=== PATIENT | female | born 1965 | race Caucasian/White ===

== ENCOUNTER 2016-11-27 14:21 | Outpatient (CLI) | payer MEDICAID ==
--- NOTE | 2016-11-29 10:30 | Mammography Report ---
DIGITAL SCREENING MAMMOGRAM: 11/27/2016 COMPARISON: 10/20/2012. TECHNIQUE: Bilateral digital CC and MLO projections with additional bilateral Марина projections. FINDINGS: The breast tissue is extremely dense. Bilateral breast implants are present. There is no d ominant mass, architectural distortion, skin thickening, suspicious microcalcifications, or significa nt interval change. IMPRESSION: NEGATIVE. BIRADS CATEGORY 1-NEGATIVE. RECOMMENDATION: SUGGEST RETURN TO ROUTINE SCREENING IN TWELVE MONTHS. STANDARD QUALIFYING STATEMENTS 1. This examination was reviewed with the aid of Computer-Aided Detection (CAD). 2. A negative or benign imaging report should not delay biopsy if clinically suspicious findings are present. Consider surgical consultation if warranted. More than 5% of cancers are not identified by i maging. 3. Dense breasts may obscure an underlying neoplasm. JOB #: [id number] EXT JOB #:[id number]
== END 2016-11-27 14:22 | disposition home or self-care (01) ==
LOC: DI.N 14:21
PROVIDERS: ATTEND Physician Assistant
DX: Z12.31 Encounter for screening mammogram for malignant neoplasm of breast (principal)
CPT/HCPCS: 77067

== ENCOUNTER 2017-09-17 14:40 | Outpatient (CLI) | payer BC ==
--- NOTE | 2017-09-17 15:43 | XRAY Report ---
Procedure Date: 09/17/2017 Accession Number: [id number] / [id number] Procedure: XRN - Elbow 2 View RT CPT Code: FULL RESULT: EXAM: Elbow 2 View RT DATE: 09/17/2017 2:53 PM CLINICAL HISTORY: RT ELBOW PAIN COMPARISON: None. TECHNIQUE: 2 views. FINDINGS: Bones: Normal. No fractures or bone lesions. Joints: Normal. No effusion. No subluxation. Soft Tissues: Normal. No soft tissue swelling. IMPRESSION: Normal elbow radiography. RADIA
== END 2017-09-17 14:41 | disposition home or self-care (01) ==
LOC: DI.N 14:40
PROVIDERS: ATTEND Physician Assistant Medical
DX: M25.521 Pain in right elbow (principal)

== ENCOUNTER 2017-12-01 13:31 | Outpatient (CLI) | payer BC ==
--- NOTE | 2017-12-02 13:15 | Mammography Report ---
Reason: SCREENING MAMMO Procedure Date: 12/01/2017 Accession Number: [id number] / [id number] Procedure: MGN - Screening Mammo Dig w/Implants CPT Code: FULL RESULT: EXAM: Screening Mammo Dig w/Implants DATE: 12/01/2017 2:21 PM CLINICAL HISTORY: 52-year-old female with history of early menses and family history of breast cancer in the mother at age 52, the sister at age 38, an aunt at age 58. TECHNIQUE: Bilateral CC and MLO views with standard technique and implant displaced technique were obtained. COMPARISON: 11/27/2016. FINDINGS: The breasts demonstrate extremely dense parenchyma bilaterally, limiting the sensitivity of mammography. Bilateral breast implants are unchanged in appearance. No suspicious masses, clustered microcalcifications, or regions of architectural distortion are identified. IMPRESSION: Negative examination RECOMMENDATION: Routine annual screening unless otherwise clinically indicated. BIRADS CATEGORY 1: Negative STANDARD QUALIFYING STATEMENTS: 1. This examination was not reviewed with the aid of Computer-Aided Detection (CAD). 2. A negative or benign imaging report should not delay biopsy if clinically suspicious findings are present. Consider surgical consultation if warrented. More than 5% of cancers are not identified by imaging. 3. Dense breasts may obscure an underlying neoplasm.
== END 2017-12-01 13:32 | disposition home or self-care (01) ==
LOC: DI.N 13:31
DX: Z12.31 Encounter for screening mammogram for malignant neoplasm of breast (principal); Z80.3 Family history of malignant neoplasm of breast; Z98.82 Breast implant status
CPT/HCPCS: 77067

== ENCOUNTER 2018-07-13 11:07 | Outpatient (CLI) | payer OTHER, MEDICAID ==
[2018-07-13 19:56] LABS: BASOPHILS % (AUTO) 0.5 %; EOSINOPHILS # (AUTO) 0.1 10^3/uL (0.0-0.7); EOSINOPHILS % (AUTO) 1.8 %; HGB - HEMOGLOBIN 13.5 g/dL (12.0-16.0); LYMPHOCYTES # (AUTO) 2.1 10^3/uL (1.5-3.5); LYMPHOCYTES % (AUTO) 35.6 %; MEAN CORPUSCULAR HEMOGLOBIN 29.4 pg (27.0-31.0); MEAN CORPUSCULAR HGB CONC 33.1 g/dL (32.0-36.0); MEAN CORPUSCULAR VOLUME 88.8 fL (81.0-99.0); MEAN PLATELET VOLUME 8.2 fL (7.9-10.8); MONOCYTES # (AUTO) 0.5 10^3/uL (0.0-1.0); MONOCYTES % (AUTO) 8.2 %; NEUTROPHILS # (AUTO) 3.1 10^3/uL (1.5-6.6); NEUTROPHILS % (AUTO) 53.9 %; PLT - PLATELET COUNT 272 10^3/uL (130-450); RED CELL DISTRIBUTION WIDTH 12.3 % (12.0-15.0); WHITE BLOOD COUNT 5.8 x10^3/uL (4.8-10.8)
[2018-07-13 20:27] LABS: BUN - BLOOD UREA NITROGEN 13 mg/dL (6-20); CALCIUM 8.8 mg/dL (8.5-10.3); CARBON DIOXIDE - CO2 30 mmol/L (21-32); CHLORIDE 103 mmol/L (101-111); CHOLESTEROL 178 mg/dL; CREATININE 0.6 mg/dL (0.4-1.0); GFR - MDRD 105 (>89); GLUCOSE 85 mg/dL (70-100); HDL CHOLESTEROL 60 mg/dL; SODIUM 140 mmol/L (135-145)
[2018-07-13 21:01] LABS: LDL CHOLESTEROL,DIRECT 114 mg/dL; LDLD/HDL RATIO 1.9 (<4.4)
== END 2018-07-13 23:59 | disposition home or self-care (01) ==
LOC: LAB.N 11:07
PROVIDERS: ATTEND Physician Assistant Medical
DX: Z00.00 Encounter for general adult medical examination without abnormal findings (principal)
CPT/HCPCS: 36415; 80048; 80061; 83721; 84443; 85025

== ENCOUNTER 2018-07-15 08:00 | Outpatient (CLI) | payer OTHER, MEDICAID ==
[2018-07-15 13:26] LABS: THYROID STIMULATING HORMONE < 0.08 uIU/mL (0.34-5.60)
[2018-07-15 13:27] LABS: FREE T4 (FREE THYROXINE) 1.15 ng/dL (0.58-1.64)
== END 2018-07-15 23:59 | disposition home or self-care (01) ==
LOC: LAB.N 08:00
PROVIDERS: ATTEND Physician Assistant Medical
DX: E23.0 Hypopituitarism (principal)
CPT/HCPCS: 36415; 81599; 84439; 84443; 86800

== ENCOUNTER 2018-10-13 08:00 | Outpatient (CLI) | payer MEDICAID, OTHER ==
[2018-10-13 13:08] LABS: THYROID STIMULATING HORMONE 13.26 uIU/mL (0.34-5.60)
[2018-10-13 13:10] LABS: FREE T4 (FREE THYROXINE) 0.67 ng/dL (0.58-1.64)
== END 2018-10-13 23:59 | disposition home or self-care (01) ==
LOC: LAB.N 08:00
PROVIDERS: ATTEND Physician Assistant Medical
DX: E23.0 Hypopituitarism (principal)
CPT/HCPCS: 36415; 84439; 84443; 84481

== ENCOUNTER 2018-11-04 08:00 | Outpatient (CLI) | payer OTHER | END 2018-11-04 23:59 | disposition home or self-care (01) | LOC: LAB.N 08:00 | PROVIDERS: ATTEND Physician Assistant Medical | DX: E03.9 Hypothyroidism, unspecified (principal) | CPT/HCPCS: 36415; 86800 ==

== ENCOUNTER 2018-12-01 14:24 | Outpatient (CLI) | payer OTHER ==
--- NOTE | 2018-12-02 08:40 | Mammography Report ---
Reason: SCREENING MAMMO Procedure Date: 12/01/2018 Accession Number: [id number] / [id number] Procedure: MGN - Screening Mammo Dig w/Implants CPT Code: FULL RESULT: EXAM: Screening Mammo Dig w/Implants DATE: 12/01/2018 2:53 PM CLINICAL HISTORY: Screening encounter. History of early menses. Family history of breast cancer in the mother at the age of 55. Personal history of bilateral saline breast implants. TECHNIQUE: (B) - Bilateral CC and MLO views were obtained. Images were obtained in standard and implant displaced fashion. COMPARISON: 12/01/2017 through 11/27/2016. PARENCHYMAL PATTERN: (D) - The breast(s) demonstrate(s) heterogeneously dense fibroglandular parenchyma. FINDINGS: Note is made of bilateral intact-appearing retromammary implants. There are no suspicious masses, calcifications, or areas of distortion. IMPRESSION: Benign findings. BI-RADS category 2. RECOMMENDATION: (ANNUAL) - Recommend routine annual screening mammography. BI-RADS CATEGORY: (2) - Benign Findings. STANDARD QUALIFYING STATEMENTS: 1. This examination was not reviewed with the aid of Computer-Aided Detection (CAD). 2. A negative or benign imaging report should not preclude biopsy if clinically suspicious findings are present. 3. Dense breasts may obscure an underlying neoplasm. 4. This examination was reviewed without the aid of 3D breast imaging (tomosynthesis).
== END 2018-12-01 14:25 | disposition home or self-care (01) ==
LOC: DI.N 14:24
DX: Z12.31 Encounter for screening mammogram for malignant neoplasm of breast (principal); Z80.3 Family history of malignant neoplasm of breast; Z98.82 Breast implant status
CPT/HCPCS: 77067

== ENCOUNTER 2018-12-24 07:41 | Outpatient (CLI) | payer OTHER ==
[2018-12-24 13:21] LABS: THYROID STIMULATING HORMONE 0.33 uIU/mL (0.34-5.60)
[2018-12-24 13:23] LABS: FREE T4 (FREE THYROXINE) 1.47 ng/dL (0.58-1.64)
== END 2018-12-24 23:59 | disposition home or self-care (01) ==
LOC: LAB.N 07:41
PROVIDERS: ATTEND Physician Assistant Medical
DX: E03.9 Hypothyroidism, unspecified (principal); R94.6 Abnormal results of thyroid function studies
CPT/HCPCS: 36415; 84439; 84443

== ENCOUNTER 2019-12-02 08:20 | Outpatient (CLI) | payer OTHER ==
--- NOTE | 2019-12-03 12:03 | Mammography Report ---
BILATERAL DIGITAL SCREENING MAMMOGRAM 3D/2D WITH AUGMENTATION: 12/02/2019 CLINICAL: Family history of breast cancer. Routine screening. Comparison is made to exams dated: 12/01/2017 mammogram, 11/27/2016 mammogram, and 12/01/2018 mammogram - [facility]. The tissue of both breasts is heterogeneously dense. This may lower the sensitivity of mammography. Bilateral breast implants are present. No significant masses, calcifications, or other findings are seen in either breast. There has been no significant interval change. IMPRESSION: NEGATIVE There is no mammographic evidence of malignancy. A 1 year screening mammogram is recommended. This exam was interpreted at Station ID: [id number]. NOTE: For mammograms, a report in lay terms will be sent to the patient. Approximately 15% of breast malignancies will not be visualized mammographically. In the management of a palpable breast mass, a negative mammogram must not discourage biopsy of a clinically suspicious lesion. Electronically Signed By: Dada chilel/colton:12/02/2019 09:08:34 ACR BI-RADS Category 1: Negative 3341F PARENCHYMAL PATTERN: (D) - The breast(s) demonstrate(s) heterogeneously dense fibroglandular cecile frank. BI-RADS CATEGORY: (1) - 1 RECOMMENDATION: (ANNUAL) - Recommend routine annual screening mammography. [id number] 1 year screening LATERALITY: (B)
== END 2019-12-02 08:21 | disposition home or self-care (01) ==
LOC: DI.N 08:20
DX: Z12.31 Encounter for screening mammogram for malignant neoplasm of breast (principal)
CPT/HCPCS: 77063; 77067

== ENCOUNTER 2020-03-28 07:45 | Outpatient (CLI) | payer OTHER ==
[2020-03-28 13:01] LABS: THYROID STIMULATING HORMONE 0.2 uIU/mL (0.34-5.60)
[2020-03-28 13:03] LABS: FREE T3 3.35 pg/mL (2.5-3.9); FREE T4 (FREE THYROXINE) 1.25 ng/dL (0.58-1.64)
== END 2020-03-28 07:46 | disposition home or self-care (01) ==
LOC: LAB.N 07:45
PROVIDERS: ATTEND Nurse Practitioner Family
DX: E03.9 Hypothyroidism, unspecified (principal)
CPT/HCPCS: 36415; 84439; 84443; 84481

== ENCOUNTER 2020-05-23 07:37 | Outpatient (CLI) | payer OTHER ==
[2020-05-23 12:17] LABS: THYROID STIMULATING HORMONE 0.77 uIU/mL (0.34-5.60)
== END 2020-05-23 07:38 | disposition home or self-care (01) ==
LOC: LAB.N 07:37
PROVIDERS: ATTEND Nurse Practitioner Family
DX: R79.89 Other specified abnormal findings of blood chemistry (principal)
CPT/HCPCS: 36415; 84443

== ENCOUNTER 2020-12-05 07:56 | Outpatient (CLI) | payer OTHER ==
[2020-12-05 12:24] LABS: BASOPHILS # (AUTO) 0.1 10^3/uL (0.0-0.1); BASOPHILS % (AUTO) 0.8 %; EOSINOPHILS # (AUTO) 0.2 10^3/uL (0.0-0.7); EOSINOPHILS % (AUTO) 2.5 %; HCT - HEMATOCRIT 44.3 % (37.0-47.0); HGB - HEMOGLOBIN 14.3 g/dL (12.0-16.0); LYMPHOCYTES # (AUTO) 2.1 10^3/uL (1.5-3.5); LYMPHOCYTES % (AUTO) 34.9 %; MEAN CORPUSCULAR HEMOGLOBIN 29.2 pg (27.0-31.0); MEAN CORPUSCULAR HGB CONC 32.3 g/dL (32.0-36.0); MEAN CORPUSCULAR VOLUME 90.4 fL (81.0-99.0); MONOCYTES # (AUTO) 0.5 10^3/uL (0.0-1.0); MONOCYTES % (AUTO) 8.7 %; NEUTROPHILS # (AUTO) 3.2 10^3/uL (1.5-6.6); NEUTROPHILS % (AUTO) 52.9 %; PLT - PLATELET COUNT 291 10^3/uL (130-450); RED CELL DISTRIBUTION WIDTH 12.5 % (12.0-15.0); WHITE BLOOD COUNT 6.1 x10^3/uL (4.8-10.8)
[2020-12-05 12:38] LABS: BILIRUBIN,URINE NEGATIVE (NEGATIVE); GLUCOSE, URINE (UA) NEGATIVE (NEGATIVE); KETONES,URINE (UA) NEGATIVE (NEGATIVE); LEUKOCYTE ESTERASE, URINE LARGE (NEGATIVE); NITRITE,URINE NEGATIVE (NEGATIVE); OCCULT BLOOD,URINE MODERATE (NEGATIVE); PROTEIN,URINE NEGATIVE (NEGATIVE); UROBILINOGEN,URINE 0.2 (NORMAL) E.U./dL (NORMAL)
[2020-12-05 12:42] LABS: ALBUMIN 4.6 g/dL (3.2-5.5); ALBUMIN/GLOBULIN RATIO 1.4 (1.0-2.2); ALKALINE PHOSPHATASE 64 IU/L (42-121); ALT ALANINE AMINOTRANSFERASE 17 IU/L (10-60); AST ASPARTATE AMINOTRANSFERASE 17 IU/L (10-42); BILIRUBIN,TOTAL 1.1 mg/dL (0.2-1.0); BUN - BLOOD UREA NITROGEN 13 mg/dL (6-20); CALCIUM 9.5 mg/dL (8.5-10.3); CARBON DIOXIDE - CO2 28 mmol/L (21-32); CHLORIDE 102 mmol/L (101-111); CHOL/HDL RATIO 2.9 (<4.4); CHOLESTEROL 223 mg/dL; CLARITY,URINE HAZY (CLEAR); CREATININE 0.8 mg/dL (0.4-1.0); GFR - MDRD 75 (>89); GLUCOSE 95 mg/dL (70-100); HDL CHOLESTEROL 78 mg/dL; LDL CHOLESTEROL,CALCULATED 136 mg/dL; LDL/HDL RATIO 1.7 (<4.4); POTASSIUM 3.9 mmol/L (3.5-5.0); SODIUM 141 mmol/L (135-145); TOTAL PROTEIN 7.8 g/dL (6.7-8.2); TRIGLYCERIDES 47 mg/dL; VLDL CHOLESTEROL 9 mg/dL
[2020-12-05 12:50] LABS: CRP - C-REACTIVE PROTEIN < 1.0 mg/dL (0-1.0)
[2020-12-05 12:51] LABS: BACTERIA,URINE Few /HPF (None Seen); EPITHELIAL CELLS,UR MOD Transitional /HPF (<= Few); SQUAMOUS EPITHELIAL CELL,UR MOD Squamous (<= Few)
[2020-12-05 12:52] LABS: THYROID STIMULATING HORMONE 1.25 uIU/mL (0.34-5.60)
[2020-12-05 12:54] LABS: FREE T4 (FREE THYROXINE) 1.36 ng/dL (0.58-1.64)
[2020-12-05 13:15] LABS: RHEUMATOID FACTOR NEGATIVE (Negative)
[2020-12-08 13:32] LABS: ANA PATTERN Nuclear, Speckled; ANA SCREEN POSITIVE (NEGATIVE)
== END 2020-12-05 07:57 | disposition home or self-care (01) ==
LOC: LAB.N 07:56
PROVIDERS: ATTEND Nurse Practitioner
DX: E03.9 Hypothyroidism, unspecified (principal); R53.83 Other fatigue; Z13.220 Encounter for screening for lipoid disorders; M19.049 Primary osteoarthritis, unspecified hand
CPT/HCPCS: 36415; 80053; 80061; 81001; 83721; 84439; 84443; 85025; 85651; 86038; 86140; 86200; 86430; 87086

== ENCOUNTER 2020-12-05 08:05 | Outpatient (CLI) | payer OTHER ==
--- NOTE | 2020-12-05 17:45 | XRAY Report ---
PROCEDURE: Hand 2 View BILAT INDICATIONS: BILATERAL PRIMARY OSTEOARTHRITIS TECHNIQUE: 2 views of the bilateral hand(s) acquired. COMPARISON: None FINDINGS: Bones: No acute fractures or dislocations. Normal bone mineralization. Alignment is anatomic. Joint spaces are maintained. Minimal degenerative changes noted over the interphalangeal and metacarpophala ngeal joints of the left thumb. No suspicious bony lesions. Soft tissues: No suspicious soft tissue calcifications. IMPRESSION: Bilateral hand without acute osseous abnormalities. Minimal degenerative changes noted over the interphalangeal and metacarpophalangeal joints of the lef t thumb. Otherwise, no radiographic evidence for significant degenerative change in the bilateral castillo d. No osseous erosions. Reviewed by: Rafa Okeefe MD on 12/05/2020 5:44 PM PDT Approved by: Rafa Okeefe MD on 12/05/2020 5:44 PM PDT Station ID: [id number]
== END 2020-12-05 08:06 | disposition home or self-care (01) ==
LOC: DI.N 08:05
PROVIDERS: ATTEND Nurse Practitioner
DX: M19.042 Primary osteoarthritis, left hand (principal); M19.041 Primary osteoarthritis, right hand; M18.12 Unilateral primary osteoarthritis of first carpometacarpal joint, left hand; E03.9 Hypothyroidism, unspecified; R53.83 Other fatigue; Z13.220 Encounter for screening for lipoid disorders
CPT/HCPCS: 36415; 80053; 80061; 81001; 83721; 84439; 84443; 85025; 85651; 86038; 86140; 86200; 86430; 87086

== ENCOUNTER 2020-12-05 08:29 | Outpatient (CLI) | payer OTHER ==
--- NOTE | 2020-12-06 09:35 | Mammography Report ---
BILATERAL DIGITAL SCREENING MAMMOGRAM 3D/2D WITH AUGMENTATION: 12/05/2020 CLINICAL: Family history of breast cancer. Routine screening. Comparison is made to exams dated: 12/02/2019 mammogram, 12/01/2018 mammogram, 12/01/2017 mammogram, mammogram, 11/27/2016 mammogram - [facility], and 10/20/2012 mammogram - [facility]. The tissue of both breasts is heterogeneously dense. This may lower the sensitivity of m ammography. Bilateral breast implants are stable. No significant masses, calcifications, or other findings are seen in either breast. There has been no significant interval change. IMPRESSION: NEGATIVE There is no mammographic evidence of malignancy. A 1 year screening mammogram is recommended. This exam was interpreted at Station ID: [id number]. NOTE: For mammograms, a report in lay terms will be sent to the patient. Approximately 15% of breast malignancies will not be visualized mammographically. In the management of a palpable breast mass, a negative mammogram must not discourage biopsy of a clinically suspicious lesion. Electronically Signed By: Sami Washburn M.D. ddp/penrad:12/05/2020 11:34:28 ACR BI-RADS Category 1: Negative 3341F PARENCHYMAL PATTERN: (D) - The breast(s) demonstrate(s) heterogeneously dense fibroglandular parsiobhan frank. BI-RADS CATEGORY: (1) - 1 RECOMMENDATION: (ANNUAL) - Recommend routine annual screening mammography. [id number] 1 year screening LATERALITY: (B)
== END 2020-12-05 08:30 | disposition home or self-care (01) ==
LOC: DI.N 08:29
DX: Z12.31 Encounter for screening mammogram for malignant neoplasm of breast (principal)

== ENCOUNTER 2020-12-27 08:00 | Outpatient (CLI) | payer OTHER | END 2020-12-27 23:59 | LOC: LAB.N 08:00 | PROVIDERS: ATTEND Nurse Practitioner | DX: N39.0 Urinary tract infection, site not specified (principal) | CPT/HCPCS: 87086 ==

== ENCOUNTER 2021-02-06 08:00 | Outpatient (CLI) | payer OTHER | END 2021-02-06 23:59 | LOC: LAB.N 08:00 | PROVIDERS: ATTEND Family Medicine | DX: R39.9 Unspecified symptoms and signs involving the genitourinary system (principal) | CPT/HCPCS: 87086 ==

== ENCOUNTER 2021-03-28 07:28 | Outpatient (CLI) | payer OTHER ==
[2021-03-28 14:03] LABS: CHOL/HDL RATIO 3.4 (<4.4); CHOLESTEROL 231 mg/dL; HDL CHOLESTEROL 67 mg/dL; LDL CHOLESTEROL,CALCULATED 149 mg/dL; LDL/HDL RATIO 2.2 (<4.4); TRIGLYCERIDES 74 mg/dL; VLDL CHOLESTEROL 15 mg/dL
== END 2021-03-28 07:29 | disposition home or self-care (01) ==
LOC: LAB.N 07:28
PROVIDERS: ATTEND Nurse Practitioner
DX: E78.5 Hyperlipidemia, unspecified (principal)
CPT/HCPCS: 36415; 80061; 83721

== ENCOUNTER 2021-11-15 08:00 | Outpatient (CLI) | payer OTHER | END 2021-11-15 23:59 | disposition home or self-care (01) | LOC: LAB.N 08:00 | PROVIDERS: ATTEND Nurse Practitioner | DX: N39.0 Urinary tract infection, site not specified (principal) | CPT/HCPCS: 87086; 87181 ==

== ENCOUNTER 2022-03-21 07:29 | Outpatient (CLI) | payer OTHER ==
[2022-03-21 12:07] LABS: BASOPHILS # (AUTO) 0.1 10^3/uL (0.0-0.1); BASOPHILS % (AUTO) 0.9 %; EOSINOPHILS # (AUTO) 0.2 10^3/uL (0.0-0.7); EOSINOPHILS % (AUTO) 3.7 %; HCT - HEMATOCRIT 42.1 % (37.0-47.0); HGB - HEMOGLOBIN 13.5 g/dL (12.0-16.0); LYMPHOCYTES # (AUTO) 2.4 10^3/uL (1.5-3.5); LYMPHOCYTES % (AUTO) 41.7 %; MEAN CORPUSCULAR HEMOGLOBIN 29.6 pg (27.0-31.0); MEAN CORPUSCULAR HGB CONC 32.1 g/dL (32.0-36.0); MEAN CORPUSCULAR VOLUME 92.3 fL (81.0-99.0); MEAN PLATELET VOLUME 10.2 fL (7.9-10.8); MONOCYTES # (AUTO) 0.6 10^3/uL (0.0-1.0); MONOCYTES % (AUTO) 10.8 %; NEUTROPHILS # (AUTO) 2.4 10^3/uL (1.5-6.6); NEUTROPHILS % (AUTO) 42.7 %; PLT - PLATELET COUNT 270 10^3/uL (130-450); RED BLOOD COUNT 4.56 10^6/uL (4.20-5.40); RED CELL DISTRIBUTION WIDTH 12.4 % (12.0-15.0); WHITE BLOOD COUNT 5.7 x10^3/uL (4.8-10.8)
[2022-03-21 12:23] LABS: ALBUMIN 4.4 g/dL (3.2-5.5); ALBUMIN/GLOBULIN RATIO 1.5 (1.0-2.2); ALKALINE PHOSPHATASE 51 IU/L (42-121); ALT ALANINE AMINOTRANSFERASE 18 IU/L (10-60); AST ASPARTATE AMINOTRANSFERASE 19 IU/L (10-42); BUN - BLOOD UREA NITROGEN 16 mg/dL (6-20); CALCIUM 9.5 mg/dL (8.5-10.3); CARBON DIOXIDE - CO2 30 mmol/L (21-32); CHLORIDE 101 mmol/L (101-111); CHOLESTEROL 240 mg/dL; CREATININE 0.9 mg/dL (0.4-1.0); GFR - MDRD 65 (>89); GLUCOSE 94 mg/dL (70-100); HDL CHOLESTEROL 79 mg/dL; LDL CHOLESTEROL,CALCULATED 151 mg/dL; LDL/HDL RATIO 1.9 (<4.4); POTASSIUM 4.1 mmol/L (3.5-5.0); SODIUM 140 mmol/L (135-145); TOTAL PROTEIN 7.3 g/dL (6.7-8.2); TRIGLYCERIDES 50 mg/dL; VLDL CHOLESTEROL 10 mg/dL
[2022-03-21 12:29] LABS: THYROID STIMULATING HORMONE 0.61 uIU/mL (0.34-5.60)
[2022-03-21 12:31] LABS: FREE T4 (FREE THYROXINE) 1.17 ng/dL (0.58-1.64)
== END 2022-03-21 07:30 | disposition home or self-care (01) ==
LOC: LAB.N 07:29
PROVIDERS: ATTEND Nurse Practitioner
DX: E03.9 Hypothyroidism, unspecified (principal); R53.83 Other fatigue; Z13.220 Encounter for screening for lipoid disorders
CPT/HCPCS: 36415; 80053; 80061; 83721; 84439; 84443; 85025

== ENCOUNTER 2022-04-24 07:45 | Outpatient (CLI) | payer OTHER | END 2022-04-24 23:59 | disposition home or self-care (01) | LOC: LAB.N 07:45 | PROVIDERS: ATTEND Registered Nurse | DX: R30.0 Dysuria (principal) | CPT/HCPCS: 87086; 87181 ==

== ENCOUNTER 2022-12-18 08:26 | Outpatient (CLI) | payer OTHER ==
--- NOTE | 2022-12-19 10:01 | Mammography Report ---
BILATERAL DIGITAL SCREENING MAMMOGRAM 3D/2D WITH AUGMENTATION: 12/18/2022 CLINICAL: Family history of breast cancer. Routine screening. Comparison is made to exams dated: 12/17/2021 mammogram, 12/05/2020 mammogram, 12/02/2019 mammogram, mammogram, 12/01/2017 mammogram, and 12/01/2016 mammogram - [facility]. Both breasts are heterogeneously dense, which may obscure small masses (category c / 51-75% glandular tissue). Bilateral breast implants are stable. No significant masses, calcifications, or other findings are seen in either breast. There has been no significant interval change. IMPRESSION: BENIGN There is no mammographic evidence of malignancy. A 1 year screening mammogram is recommended. Based on Tyrer-Cuzick model (a risk assessment model), the patient's lifetime risk is 33.4% and her 1 0 year risk is 12.0%. If a patient has an elevated risk, a more comprehensive evaluation should be co nsidered and/or a referral to a genetic counselor. The [place] [employer], [place] [employer], and NCCN Guidelines advise the consideration of Breast MRI as an adjunct to screening mammo graphy in patients whose "Lifetime risk to develop breast cancer" is 20% or higher. This exam was interpreted at Station ID: [id number]. NOTE: For mammograms, a report in lay terms will be sent to the patient. Approximately 15% of breast malignancies will not be visualized mammographically. In the management of a palpable breast mass, a negative mammogram must not discourage biopsy of a clinically suspicious lesion. Electronically Signed By: Rafa Okeefe M.D. aty/:12/19/2022 06:50:51 letter sent: No_Letter ACR BI-RADS Category 2: Benign Finding(s) 3342F PARENCHYMAL PATTERN: (D) - The breast(s) demonstrate(s) heterogeneously dense fibroglandular parsiobhan frank. BI-RADS CATEGORY: (2) - 2 Mammogram [id number] 1 year screening LATERALITY: (B)
== END 2022-12-18 08:27 | disposition home or self-care (01) ==
LOC: DI.N 08:26
DX: Z12.31 Encounter for screening mammogram for malignant neoplasm of breast (principal); Z80.3 Family history of malignant neoplasm of breast; R92.333 Mammographic heterogeneous density, bilateral breasts; Z98.82 Breast implant status

== ENCOUNTER 2023-03-18 07:41 | Outpatient (CLI) | payer OTHER ==
[2023-03-18 12:12] LABS: BASOPHILS # (AUTO) 0.1 10^3/uL (0.0-0.1); BASOPHILS % (AUTO) 1.1 %; EOSINOPHILS # (AUTO) 0.3 10^3/uL (0.0-0.7); EOSINOPHILS % (AUTO) 5.1 %; HCT - HEMATOCRIT 42.2 % (37.0-47.0); HGB - HEMOGLOBIN 13.6 g/dL (12.0-16.0); LYMPHOCYTES # (AUTO) 2.2 10^3/uL (1.5-3.5); LYMPHOCYTES % (AUTO) 41.5 %; MEAN CORPUSCULAR HEMOGLOBIN 29.5 pg (27.0-31.0); MEAN CORPUSCULAR HGB CONC 32.2 g/dL (32.0-36.0); MEAN CORPUSCULAR VOLUME 91.5 fL (81.0-99.0); MEAN PLATELET VOLUME 10.1 fL (7.9-10.8); MONOCYTES # (AUTO) 0.5 10^3/uL (0.0-1.0); MONOCYTES % (AUTO) 9.9 %; NEUTROPHILS # (AUTO) 2.3 10^3/uL (1.5-6.6); NEUTROPHILS % (AUTO) 42.2 %; PLT - PLATELET COUNT 280 10^3/uL (130-450); RED BLOOD COUNT 4.61 10^6/uL (4.20-5.40); RED CELL DISTRIBUTION WIDTH 12.5 % (12.0-15.0); WHITE BLOOD COUNT 5.3 x10^3/uL (4.8-10.8)
[2023-03-18 12:51] LABS: ALBUMIN 4.4 g/dL (3.2-5.5); ALBUMIN/GLOBULIN RATIO 1.7 (1.0-2.2); ALKALINE PHOSPHATASE 56 IU/L (42-121); ALT ALANINE AMINOTRANSFERASE 14 IU/L (10-60); AST ASPARTATE AMINOTRANSFERASE 16 IU/L (10-42); BILIRUBIN,TOTAL 0.7 mg/dL (0.2-1.0); BUN - BLOOD UREA NITROGEN 13 mg/dL (6-20); CALCIUM 9.5 mg/dL (8.5-10.3); CARBON DIOXIDE - CO2 30 mmol/L (21-32); CHLORIDE 103 mmol/L (101-111); CHOL/HDL RATIO 3.1 (<4.4); CHOLESTEROL 227 mg/dL; CREATININE 0.8 mg/dL (0.6-1.3); GFR - MDRD 74 (>89); GLUCOSE 94 mg/dL (74-104); HDL CHOLESTEROL 73 mg/dL; LDL CHOLESTEROL,CALCULATED 141 mg/dL; LDL/HDL RATIO 1.9 (<4.4); POTASSIUM 3.9 mmol/L (3.5-4.5); SODIUM 140 mmol/L (135-145); TRIGLYCERIDES 65 mg/dL (48-352); VLDL CHOLESTEROL 13 mg/dL
== END 2023-03-18 07:42 | disposition home or self-care (01) ==
LOC: LAB.N 07:41
PROVIDERS: ATTEND Nurse Practitioner
DX: Z00.00 Encounter for general adult medical examination without abnormal findings (principal); E78.5 Hyperlipidemia, unspecified
CPT/HCPCS: 36415; 80053; 80061; 83721; 85025

== ENCOUNTER 2023-09-04 07:28 | Outpatient (CLI) | payer OTHER ==
[2023-09-04 13:03] LABS: THYROID STIMULATING HORMONE 0.88 uIU/mL (0.34-5.60)
== END 2023-09-04 07:29 | disposition home or self-care (01) ==
LOC: LAB.N 07:28
PROVIDERS: ATTEND Nurse Practitioner
DX: E03.9 Hypothyroidism, unspecified (principal)
CPT/HCPCS: 36415; 84439; 84443